=== PATIENT | female | born 1950 | race Caucasian/White ===

== ENCOUNTER 2022-05-31 08:34 | Outpatient (CLI) | payer MEDICARE, BC, SELFPAY ==
[2022-05-31 11:56] LABS: Albumin* 4.9 g/dL (3.3-5.0); Chloride* 104 mmol/L (96-114); Sodium* 139 mmol/L (135-149)
[2022-05-31 11:57] LABS: Potassium* 4.4 mmol/L (3.6-5.1)
[2022-05-31 11:58] LABS: Cholesterol* 208 mg/dL (90-199)
[2022-05-31 11:59] LABS: Alanine Aminotransferase* 13 U/L (4-35); Alkaline Phosphatase* 103 U/L (40-150); Aspartate Amino Transferase* 20 U/L (12-35); Bilirubin Total* 0.6 mg/dL (0.1-1.5); Blood Urea Nitrogen* 17 mg/dL (7-30); Calcium* 9.8 mg/dL (8.4-10.6); Carbon Dioxide* 23 mmol/L (20-32); Creatinine* 0.8 mg/dL (0.5-1.5); Estimated Glomerular Filt Rate 78 ml/min; Glucose* 99 mg/dL (60-115); HDL Cholesterol* 74 mg/dL (>=50); LDL Cholesterol Calculated 109 mg/dL (<100); Total Protein* 8.4 g/dL (6.0-8.3); Triglycerides* 124 mg/dL (40-149)
[2022-05-31 12:32] LABS: Ferritin* 70.5 ng/mL (11.1-264.0)
== END 2022-05-31 08:35 | disposition home or self-care (01) ==
LOC: NFLDREF 09:45
PROVIDERS: PCP Family Medicine; Visit Provider Family Medicine
DX: I10 Essential (primary) hypertension (principal); E78.5 Hyperlipidemia, unspecified; G25.81 Restless legs syndrome; Z13.0 Encounter for screening for diseases of the blood and blood-forming organs and certain disorders involving the immune mechanism
CPT/HCPCS: 80053; 80061; 82728

== ENCOUNTER 2023-07-01 09:45 | Outpatient (CLI) | payer MEDICARE, BC, SELFPAY | END 2023-07-01 09:46 | disposition home or self-care (01) | LOC: NFLDREF 07-05 11:58 | PROVIDERS: PCP Family Medicine; Referring Provider Family Medicine; Visit Provider Family Medicine | DX: Z00.00 Encounter for general adult medical examination without abnormal findings (principal); E78.5 Hyperlipidemia, unspecified; I10 Essential (primary) hypertension; G47.9 Sleep disorder, unspecified | CPT/HCPCS: 80053; 80061 ==

== ENCOUNTER 2024-04-17 15:02 | Outpatient (CLI) | payer MEDICARE, BC, SELFPAY ==
--- NOTE | 2024-04-17 15:30 | CRLHL7_ITS ---
For Patients: As a result of the 21st Century Cures Act, medical imaging exams and procedure reports are released immediately into your electronic medical record. You may view this report before your referring provider. If you have questions, please contact your health care provider. EXAM: MRI OF THE LEFT KNEE, WITHOUT CONTRAST CLINICAL INDICATION: Medial knee pain. Examination consistent with medial meniscal tear. COMPARISON PLAIN FILMS: 07/08/2019. COMPARISON CROSS-SECTIONAL IMAGING STUDIES: None available at time of interpretation. TECHNICAL: Axial, sagittal and coronal T1, PD, PD FS and T2 FS images. Knee coil. FINDINGS: MEDIAL COMPARTMENT: Medial Meniscus: Irregular tearing and volume loss in the free edge and middle 3rd of the body of the medial meniscus. Horizontal oblique tear the posterior of the medial meniscus extends to the tibial articular surface. The root attachments are intact. 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 - LATERAL COMPARTMENT: Lateral Meniscus: Normal size and morphology without tear. Articular Cartilage: Articular surfaces appear smooth without focal articular cartilage defect or subchondral marrow changes. - PATELLOFEMORAL COMPARTMENT: Articular Cartilage: Moderate chondral thinning in the central aspect of the trochlear curve (grade 3). Mild fissuring in the patellar articular cartilage (grade 2). - CRUCIATE LIGAMENTS: Anterior Cruciate Ligament: Normal. Posterior Cruciate Ligament: Normal. - MEDIAL COLLATERAL LIGAMENT AND POSTEROMEDIAL CORNER COMPLEX: Medial Collateral Ligament: Normal. Medial Head of the Gastrocnemius and Semimembranosus Tendons: Normal. - LATERAL COLLATERAL LIGAMENT COMPLEX AND POSTEROLATERAL CORNER COMPLEX: Fibular Collateral Ligament: Normal. Distal Biceps Femoris Tendon Complex: Normal. Iliotibial Band: Normal. Popliteus Tendon: Normal. Posterolateral Corner Capsule: Normal. - EXTENSOR MECHANISM: Distal Quadriceps Tendon: Normal. Patellar Tendon: Normal. Medial Patellar Retinaculum and Medial Patellofemoral Ligament: Normal. Lateral Patellar Retinaculum: Normal. Normal patellar alignment. No patella jorge. Normal trochlear depth. Normal lateral trochlear inclination. - JOINT SPACE: Effusion: No significant joint effusion or synovitis. No popliteal cyst. Joint Bodies: None seen. - OSSEOUS STRUCTURES: No fracture, marrow edema or marrow replacement process. - PERIARTICULAR SOFT TISSUES: Periarticular Cysts or Ganglia: None. Bursae: No prepatellar, superficial infrapatellar, deep infrapatellar, pes anserinus or semimembranosus/MCL bursitis. Musculature: No muscle atrophy or muscle edema. Subcutaneous and Soft Tissues: No subcutaneous or soft tissue mass, edema or fluid collection. Neurovascular Structures: Normal. IMPRESSION: 1. Tear and volume loss in the body of the medial meniscus with a horizontal tear in the posterior horn. 2. Full-thickness chondromalacia in the medial compartment. 3. Mild chondromalacia in the patella with focal moderate chondromalacia in the central trochlear groove. Dictated by Donte Watt MD @ 04/21/2024 10:13:36 AM (Electronically Signed)
== END 2024-04-17 15:03 | disposition home or self-care (01) ==
LOC: MRI 15:04
PROVIDERS: PCP Family Medicine; Visit Provider Family Medicine
DX: M25.562 Pain in left knee (principal); S83.242A Other tear of medial meniscus, current injury, left knee, initial encounter; M94.262 Chondromalacia, left knee; M22.42 Chondromalacia patellae, left knee
CPT/HCPCS: 73721

== ENCOUNTER 2024-08-04 09:57 | Outpatient (CLI) | payer MEDICARE, BC, SELFPAY | END 2024-08-04 09:58 | disposition home or self-care (01) | LOC: NFLDREF 08-05 00:12 | PROVIDERS: PCP Family Medicine; Referring Provider Family Medicine; Visit Provider Family Medicine | DX: E78.5 Hyperlipidemia, unspecified (principal); I10 Essential (primary) hypertension | CPT/HCPCS: 80053; 80061 ==

== ENCOUNTER 2024-11-03 06:00 | Day surgery (SDC) | payer MEDICARE, BC, SELFPAY ==
[2024-11-03] VITALS (24 sets, daily range): BP systolic 82–154; BP diastolic 51–98; PULSE 58–75; RESP 16–20; TEMP 36.1–36.6; O2SAT 89–97; BMI 33.5
[2024-11-03] MEDS: MIDAZOLAM HCL 1 MG/ML inj IVP (05:58)
[2024-11-03] MEDS: fentaNYL 100 MCG/2 ML inj IVP (05:58)
[2024-11-03] MEDS: LACTATED RINGERS 1000 ML 1,000 ML 100 ML IV (06:50)
[2024-11-03] MEDS: SODIUM CHLORIDE 0.9 % (FLUSH) 10 ML SYRINGE IVF (06:50)
[2024-11-03] MEDS: ACETAMINOPHEN 500 MG TABLET 1000 MG PO (06:57)
[2024-11-03] MEDS: CELECOXIB 200 MG CAPSULE PO (06:58)
[2024-11-03] MEDS: OXYCODONE (CR) 10 MG TAB.ER.12H PO (06:58)
--- NOTE | 2024-11-03 07:14 | SUR.PREOP ---
TIME?OUT:?left knee 0700 PT/RN/MDA?VERIFICATION?OF?SURGICAL?SITE,?PROCEDURE,?AND?CONSENT OBTAINED?PRIOR?TO?INVASIVE?PROCEDURE.
[2024-11-03] MEDS: CEFAZOLIN 2 GM INJ IVP (08:32)
[2024-11-03] MEDS: TRANEXAMIC ACID 100 MG/ML INJ 1000 MG IV (08:33)
--- NOTE | 2024-11-03 08:34 | W.PM.NB ---
Nerve Block Nerve Block Time Seen by Provider: 07:05 Date Seen: 11/03/24 Type of block requested by surgeon for post-operative analgesia: adductor canal Side: left Time out performed: Yes Verification of patient name: Yes Verification of date of : Yes Site marking: site marked Name of person performing procedure: Abilio Continuous monitoring Was continuous monitoring of O2 sat, B/P, outbound telemarketer, recorded every 15 minutes?: Yes Procedure Checklist: sterile prep, needles and gloves Ultrasound guided. Images saved: Yes Medications given in 5ml increments after negative aspiration: Marcaine %: 0.25 mL: 15 Needle gauge: 20 Precedex (mcg): 25 Patient tolerated procedure well: Yes Block Charges Block Charge (with Pro Fee): Femoral Nerve Use of Ultrasound Machine for Block: Yes- US Guidance/pain block
--- NOTE | 2024-11-03 08:35 | P.ANES_ITS ---
Anesthesia Charges Start Date/Time Anesthesia Start Date: 11/03/24 Anesthesia Start Time: 08:17 Stop Date/Time Anesthesia Stop Date: 11/03/24 Anesthesia Stop Time: 10:24 Summary Extremes of Age - Over 70 or under 1: MDA Coding CPT Codes CPT Codes: ANESTH KNEE ARTHROPLASTY - 15219 ([id number]) P2 - PATIENT W/MILD SYST DISEASE, QK - DIGITAL PRODUCER 2-4 CNCRNT ANES PROC, QX - NAILER OPERATOR SVC W/ MD MED DIRECTION Additional Codes: Summary - Extremes of Age - Over 70 or under 1: MDA ([id number])
--- NOTE | 2024-11-03 08:35 | W.PM.NB ---
Nerve Block Nerve Block Time Seen by Provider: 07:05 Date Seen: 11/03/24 Type of block requested by surgeon for post-operative analgesia: geniculars Side: left Time out performed: Yes Verification of patient name: Yes Verification of date of : Yes Site marking: site marked Name of person performing procedure: Abilio Continuous monitoring Was continuous monitoring of O2 sat, B/P, nurse monitoring, recorded every 15 minutes?: Yes Procedure Checklist: sterile prep, needles and gloves Ultrasound guided. Images saved: Yes Medications given in 5ml increments after negative aspiration: Marcaine %: 0.25 mL: 9 Needle gauge: 25 Patient tolerated procedure well: Yes Block Charges Block Charge (with Pro Fee): Genicular Nerve Block
--- NOTE | 2024-11-03 08:35 | W.ANESCHARGE ---
Anesthesia Charges Start Date/Time Anesthesia Start Date: 11/03/24 Anesthesia Start Time: 08:17 Stop Date/Time Anesthesia Stop Date: 11/03/24 Anesthesia Stop Time: 10:24 Summary Extremes of Age - Over 70 or under 1: MDA Coding CPT Codes CPT Codes: ANESTH KNEE ARTHROPLASTY - 55676 ([id number]) P2 - PATIENT W/MILD SYST DISEASE, QK - REPAIR TECH 2-4 CNCRNT ANES PROC, QX - LOADING UNIT OPERATOR CRIMPING SVC W/ MD MED DIRECTION Additional Codes: Summary - Extremes of Age - Over 70 or under 1: MDA ([id number])
--- NOTE | 2024-11-03 09:25 | CRLHL7_ITS ---
For Patients: As a result of the Cures Act, medical imaging exams and procedure reports are released immediately into your electronic medical record. You may view this report before your referring provider. If you have questions, please contact your health care provider. Indication: post op TKA Technique: Two views left knee Findings/Impression: Hardware from a left total knee arthroplasty is in satisfactory position. Bone alignment is normal. No sign of acute fracture. Postop changes are within normal limits. Dictated by Faustino Schwab MD @ 11/03/2024 10:56:51 AM (Electronically Signed)
--- NOTE | 2024-11-03 09:27 | P.ORPRC_ITS ---
Procedure Note Date of procedure: 11/03/24 Procedure: PREOPERATIVE DIAGNOSIS: Left knee osteoarthritis POSTOPERATIVE DIAGNOSIS: Left knee osteoarthritis NAME OF OPERATION: Left total knee arthroplasty SURGEON: Abdulaziz Bravo MD SEE SUPERVISOR: Maria M Oscar PA-C ANESTHESIA: Spinal ESTIMATED BLOOD LOSS: 0 mL COMPLICATIONS: None SPECIMENS: None DRAINS: None PREOPERATIVE ANTIBIOTICS: Ancef 2 grams IMPLANTS: 1. J&J Attune #4 posterior stabilized femur 2. #3 fixed-bearing tibia 3. #4 posterior stabilized, 8 mm fixed-bearing polyethylene 4. 35 patella INDICATIONS: The patient is a 74-year-old with a longstanding history of severe, unrelenting left knee pain secondary to end-stage (grade IV) left knee osteoarthritis. Despite appropriate nonoperative management, including activity modification, anti-inflammatories, [id number] pain medication, bracing, ph ysical therapy, and injections they continue to have pain and disability. Operative intervention was offered. The risks, benefits and expected outcomes were discussed in detail. These included but were not limited to: Infection, bleeding, injury to blood vessel or nerve, venous thromboembolism. All questions were answered to their satisfaction. Use of an photo studio assistant was necessary throughout the case for patient positioning and safety, soft tissue retraction, and closure. PROCEDURE: Spinal anesthesia was administered. The patient was placed supine on the operating table. The photo studio assistant made sure the patient was positioned appropriately. The lower extremity was prepped and draped in the usual sterile fashion. The limb was exsanguinated with the Damion bandage. The pneumatic tourniquet was inflated to 300 mmHg. A standard anterior incision was made with the knee in flexion. Subcutaneous dissection was sharply taken through fascial layer #1. Full-thickness medial and lateral flaps were elevated. The photo studio assistant retracted the soft tissues and protected them throughout the case. A standard subvastus approach was made. The patella was subluxed. The infrapatellar fat pad was preserved. The menisci and cruciate ligaments were sharply d?brided. Marginal osteophytes were d?brided with the rongeur. The drill was used to penetrate the femoral canal. The canal was aspirated and irrigated with pulse lavage. The intramedullary femoral guide was placed for a 5-degree valgus cut, removing 10 mm off the distal femur. The saw was used to make the cut. Whitesides line and the trans epicondylar axis were marked. The femoral sizing guide was pinned onto the distal femur. Three degrees of external rotation nicely parallels the transepicondylar axis. Pins were placed for posterior referencing. The four-in-one cutting guide was pinned onto the distal femur. The anterior, posterior, and chamfer cuts were made. The photo studio assistant protected the collateral ligaments. The box cutting guide was pinned. The box cuts were made. The boxed trial was placed and was an excellent fit. Drill holes for the lugs were made. Attention was then turned to the proximal tibia. The extramedullary tibial guide was placed for a neutral varus/valgus cut with 5 degrees of posterior slope, removing 2 mm based off the medial tibial surface. The photo studio assistant protected the collateral ligaments and the neurovascular bundle. The saw was used to make the cut. Trial components were placed. The knee was nicely balanced in both flexion and extension. The trial components were removed. The tray was placed in appropriate rotation, parallel to our tibial cutting pins. It was pinned by the photo studio assistant and the drill and the punch were used. The tray was removed. The punch was used again. We placed a bone plug in the femoral canal. Attention was then turned to the patella. [place] patellar thickness was 22 mm. The lobster claw resection guide was used with the 9.5 mm parisa. The saw was used to make the cut. Drill holes were made by the photo studio assistant. The trial was placed and was an excellent fit. Cancellous surfaces were irrigated with pulse lavage and thoroughly dried by the photo studio assistant. We cemented the tibial component, then the femoral component. We impacted the 8 mm polyethylene onto the tibial tray. The knee was brought into full extension. We then cemented the patellar component. Excessive cement was removed. The cement was allowed to harden. The knee was taken through a range of motion and was found to be nicely balanced in both flexion and extension. The patella tracks centrally. The photo studio assistant did a three minute dilute Betadine solution soak. The photo studio assistant irrigated the wound with 3 liters of normal saline via pulse lavage. The photo studio assistant reapproximated the extensor mechanism with #1 Vicryl in an interrupted [id number] fashion. The photo studio assistant then ran the extensor mechanism with a #1 PDO Stratafix. The photo studio assistant closed the subcutaneous tissues with a 3-0 Stratafix and the skin with a running 3-0 Stratafix in a subcuticular fashion. Glue was used to seal the skin. The photo studio assistant placed a dry dressing. Sponge and needle counts were correct x2. The patient tolerated the procedure well. There were no apparent complications. They were carefully transferred to the hospital bed and taken to the postanesthesia care unit in satisfactory condition. PLAN: The patient will be mobilized with physical therapy. Aspirin will be used for DVT prophylaxis. They will be discharged to home once medically appropriate.
--- NOTE | 2024-11-03 10:32 | P.ANES_ITS ---
Anesthesia Charges Start Date/Time Anesthesia Start Date: 11/03/24 Anesthesia Start Time: 08:17 Stop Date/Time Anesthesia Stop Date: 11/03/24 Anesthesia Stop Time: 10:24 Summary Extremes of Age - Over 70 or under 1: KITCHEN ASSISTANT Coding CPT Codes CPT Codes: ANESTH KNEE ARTHROPLASTY - 95226 ([id number]) P2 - PATIENT W/MILD SYST DISEASE, QK - CORDWOOD CUTTER HELPER 2-4 CNCRNT ANES PROC, QX - KITCHEN ASSISTANT SVC W/ MD MED DIRECTION Additional Codes: Summary - Extremes of Age - Over 70 or under 1: KITCHEN ASSISTANT ([id number])
--- NOTE | 2024-11-03 10:32 | W.ANESCHARGE ---
Anesthesia Charges Start Date/Time Anesthesia Start Date: 11/03/24 Anesthesia Start Time: 08:17 Stop Date/Time Anesthesia Stop Date: 11/03/24 Anesthesia Stop Time: 10:24 Summary Extremes of Age - Over 70 or under 1: SYSTEMS MECHANIC Coding CPT Codes CPT Codes: ANESTH KNEE ARTHROPLASTY - 57597 ([id number]) P2 - PATIENT W/MILD SYST DISEASE, QK - GEOPHYSICIST 2-4 CNCRNT ANES PROC, QX - SYSTEMS MECHANIC SVC W/ MD MED DIRECTION Additional Codes: Summary - Extremes of Age - Over 70 or under 1: SYSTEMS MECHANIC ([id number])
--- NOTE | 2024-11-03 10:48 | SUR.PHASEI ---
xray here for ap/lat left knee
--- NOTE | 2024-11-03 11:43 | SUR.PHASEII ---
pt woke up to her family agitated, anxious, afraid, pannicky stating she couldn't feel her leg. She was difficult to soothe. Given 1mg Versed with quick results. She has restless legs which her family thinks may be contributing to her restlessness. She has her home medication for her restless legs. Dr. Knox ok'd allowing her to take her Pregabalin as per her normal dose, if she cannot relax
[2024-11-03] MEDS: LACTATED RINGERS 1000 ML 1,000 ML 50 ML IV (12:08)
--- NOTE | 2024-11-03 13:23 | SUR.PHASEII ---
pt out of bed w/o difficulty. voided, taken to PT/OT
== END 2024-11-03 14:18 | disposition home or self-care (01) ==
LOC: OR 06:03
PROVIDERS: PCP Family Medicine; Visit Provider Orthopaedic Surgery
PROC: (CPT 27447; principal; 2024-11-03 07:15)
DX: M17.12 Unilateral primary osteoarthritis, left knee (principal); G89.18 Other acute postprocedural pain
CPT/HCPCS: 27447; 01402; 64447; 64454; 73560; 76942; 97110; 97116; 97161; 97530; 99100; A9270; C1776; J0665; J0690; J1100; J2250; J2405; J2704; J3010; J7120

== ENCOUNTER 2024-12-17 13:00 | Outpatient (RCR) | payer MEDICARE, BC, SELFPAY ==
--- NOTE | 2024-10-27 17:09 | PT.OPEX ---
PT [facility] Eval PT [facility] Outpatient Eval Start: 10/27/24 13:57 Freq: Status: Active Protocol: Document 10/27/24 13:58 UTE (Rec: 10/27/24 16:59 UTE [id number]) E-signed By Carla Price DPT Physical Therapy Outpatient Evaluation Insurance Information Recert Due Date 01/25/25 Insurance Name Medicare B Medical Diagnosis L knee OA L TKA 11/03/24 Treating Diagnosis L knee pain, impaired L knee ROM, impaired L knee/LE mobility/strength, limping/ antalgic gait, limited tolerance for extended standing/walking Subjective Subjective Patient reports chronic L knee pain leading to L TKA scheduled for 11/03/24. She reports ongoing pain issues since last May. Pain range 3- 7/10. She lives with her spouse at her daughter's home. Plan after surgery is to stay at [facility] - she and spouse rented a room for 10 days. Plan to return to daughter's home after that. At [facility] patient can use the elevator, apt will be one level. Once back to her daughter's home - 2 stairs to enter the home. Garage entry has a railing, door frame to use. She can stay mostly on the main level once inside but bedroom and tub/shower are upstairs, one flight with 2 railings. Patient is planning to borrow a FWW for use after surgery. Tub shower has grab bars. Raised toilet height. Laundry in the lower level but patient will have some assist initially. Patient is also borrowing an ice machine to use after surgery. Date of Last Physician Visit 09/02/24 Date of Surgery (If applicable) 11/03/24 Current Work Status Retired Assessment Assessment/Impression Patient is a 74 year old with L knee pain, impaired L knee ROM, impaired L knee/LE mobility/strength, limping/ antalgic gait, limited tolerance for extended standing/walking. L knee pain rated 3-7/10. Patient seen in PT today for pre-op session to provide education/ information on upcoming TKA surgery, safety information/HO , equipment instruction including use of FWW, and instruction in TKA exercises. Handouts issued for exercises , patient to perform them leading up to surgery. See subjective section above regarding patient plan to stay at [facility] for 10 days after surgery and for home set up once she returns to living with her daughter after surgery. Spouse is available to assist after surgery. Reviewed PT/OT plan after surgery with plan for SDS. Patient is scheduled for OP PT post op. Patient would benefit from skilled PT for pain/sx management, improved knee ROM, improved knee/LE mobility/strength, improved gait, balance/proprioception training, and establishment of HEP. Plan of Care Rehabilitation Potential Good Physical Therapy Goals 1. Patient will be educated in TKA pre/post-op safety, mobility, and exercises with HOs provided within one visit with patient returning to PT for post op treatment after TKA surgery . PT goals will be updated to TKA rehab goals when patient returns post op. Coordination/Communication With Referral Source Treatment Plan/Direct Interventions Gait Training,Manual Therapy, Therapeutic Exercises Frequency/Duration 2x/week Patient Will Be Discharged From Therapy Completion of LTG(s),Skills Plateau,Independent w/HEP, Independently Progressing Evaluation Billing Untimed Code Treatment Minutes 42 Complexity Moderate Certification Information Initial Certification Date 10/27/24 Ending Certification Date 01/25/25 Provider Signature Required Yes Provider Signature Shows Agreement With POC & Medical Necessity Physician NPI Number Write NPI# Here Physician Comment/Change : Physician Signature & Date Requested Please Sign/Date Here
== END 2025-04-16 23:59 | disposition home or self-care (01) ==
PROVIDERS: PCP Family Medicine; Visit Provider Orthopaedic Surgery
DX: Z47.1 Aftercare following joint replacement surgery (principal); M17.12 Unilateral primary osteoarthritis, left knee; Z96.652 Presence of left artificial knee joint; M25.562 Pain in left knee; Z51.89 Encounter for other specified aftercare
CPT/HCPCS: 97110; 97162

== ENCOUNTER 2025-08-06 09:53 | Outpatient (CLI) | payer MEDICARE, BC, SELFPAY | END 2025-08-06 09:54 | disposition home or self-care (01) | LOC: NFLDREF 08-11 20:12 | PROVIDERS: PCP Family Medicine; Referring Provider Family Medicine; Visit Provider Family Medicine | DX: E78.5 Hyperlipidemia, unspecified (principal) | CPT/HCPCS: 80053; 80061 ==